=== PATIENT | female | born 1975 | race Caucasian/White ===

== ENCOUNTER 2020-07-27 16:09 | Outpatient (REF) | payer OTHER, SELFPAY ==
[2020-07-27 17:09] LABS: COVID-19 Test Negative (Negative)
== END 2020-07-27 16:10 | disposition home or self-care (01) ==
LOC: HO.EMPCOV 16:09
PROVIDERS: Visit Provider Internal Medicine
DX: Z20.828 Contact with and (suspected) exposure to other viral communicable diseases (principal)
CPT/HCPCS: 87635; C9803

== ENCOUNTER 2020-10-05 07:44 | Outpatient (REF) | payer OTHER, SELFPAY ==
[2020-10-05 08:04] LABS: COVID-19 Test Negative (Negative)
== END 2020-10-05 07:45 | disposition home or self-care (01) ==
LOC: HO.EMPCOV 07:44
PROVIDERS: Visit Provider Internal Medicine
DX: Z20.822 Contact with and (suspected) exposure to COVID-19 (principal)
CPT/HCPCS: 36415; 87635; C9803

== ENCOUNTER → 2021-06-07 11:24 | Outpatient (BNVA) | payer OTHER, SELFPAY | PROVIDERS: PCP Internal Medicine; Visit Provider Internal Medicine | DX: Z13.89 Encounter for screening for other disorder (principal) | CPT/HCPCS: 99203 ==

== ENCOUNTER → 2021-06-18 08:06 | Outpatient (BNVA) | payer OTHER, SELFPAY | PROVIDERS: PCP Internal Medicine; Visit Provider Physician Assistant Medical | DX: Z13.89 Encounter for screening for other disorder (principal) | CPT/HCPCS: 99213 ==

== ENCOUNTER → 2021-06-21 09:42 | Outpatient (BNVA) | payer OTHER, SELFPAY | PROVIDERS: PCP Internal Medicine; Visit Provider Physician Assistant Medical | DX: Z13.89 Encounter for screening for other disorder (principal) | CPT/HCPCS: 73610; 99213 ==

== ENCOUNTER → 2021-07-02 15:08 | Outpatient (BNVA) | payer OTHER, SELFPAY | PROVIDERS: PCP Internal Medicine; Visit Provider Physician Assistant | DX: S93.402A Sprain of unspecified ligament of left ankle, initial encounter (principal); X50.1XXA Overexertion from prolonged static or awkward postures, initial encounter; Y93.01 Activity, walking, marching and hiking; Y92.238 Other place in hospital as the place of occurrence of the external cause; Y99.0 Civilian activity done for income or pay; Z88.2 Allergy status to sulfonamides; Z88.8 Allergy status to other drugs, medicaments and biological substances | CPT/HCPCS: 99202 ==

== ENCOUNTER 2021-11-14 07:00 | Outpatient (RCR) | payer OTHER, SELFPAY ==
--- NOTE | 2021-07-12 14:59 | MHC.PT.EP ---
[facility] [place] [facility] [place] [facility] [place] [facility] [address] Hortencia Reis [address] [phone] F: [phone] F: [phone] F: [phone] F: [phone] Physical Therapy Plan of Care Date of Evaluation: Date of Surgery: none Diagnosis: left ankle sprain Assessment: The patient reports feeling frustrated by her current injury. She feels she has made very little progress and has even noted symptoms worsening. She continues to experience swelling, ankle pain, lack of ROM, and poor ankle strength. Objectively she has significant loss of ankle DF PROM and AROM. Painful motion with ankle inversion especially with ankle PF. The patient had pain with ankle proprioception exercises. I will instruct her on pain free stretches, and ROM. I educated her on patience of rehab and to notify me if her symptoms/pain worsens. She is an excellent candidate for skilled PT. Frequency and Duration: The patient will be seen 2x/week x 4 weeks. Short Term Goals: 1. The patient to report understanding of the importance of a heel lift, symmetry of footwear in order to help avoid pain from wearing the boot. 2. pt to be able to demonstrate initial HEP in order to gently improve ROM and strength 3. pt to be able to walk without the boot in a heel to toe reciprocal gait pattern. Intake Clinician Goals: 1. The patient to be able to perform lateral lunge, bend to floor, squat, and pick objects off the floor without limitations. 2. The patient to be able to return to full day of work without pain limitation. 3. Pt to be able to step down off a 6 inch step without modification to show ability to negotiate community obstacles Treatment Plan: Modalities to reduce pain, spasms and effusion. Manual therapy to restore motion and function. Therapeutic exercise to improve strength and flexibility. Neuromuscular re-education for posture and balance. Therapeutic activities to return to functional activities of daily living. Electronically signed by: Batool Nuñez PT DPT Please sign and return to therapist. Thank you for your referral.
== END 2021-12-03 07:25 | disposition home or self-care (01) ==
LOC: HO.PT 07:00
PROVIDERS: PCP Internal Medicine; Visit Provider Physician Assistant
DX: S93.402D Sprain of unspecified ligament of left ankle, subsequent encounter (principal)
CPT/HCPCS: 97033; 97110; 97112; 97140; 97162; 97530

== ENCOUNTER 2022-02-12 07:00 | Outpatient (RCR) | payer BC, SELFPAY | END 2022-04-19 14:11 | disposition home or self-care (01) | LOC: HO.PT 07:00 | PROVIDERS: Visit Provider Obstetrics & Gynecology | DX: N39.3 Stress incontinence (female) (male) (principal) | CPT/HCPCS: 97110; 97112; 97162; 97530 ==